=== PATIENT | male | born 1960 | race Caucasian/White ===

== ENCOUNTER 2018-01-25 10:27 | Emergency (ER) | payer OTHER, SELFPAY ==
[2018-01-25] MEDS ORDERED: METHYLPREDNISOLONE SOD SUCC 40MG/ML 1ML ONE (11:15)
[2018-01-25] MEDS ORDERED: FAMOTIDINE 20MG TAB 20 MG TAB ONE (11:15)
[2018-01-25] MEDS ORDERED: DiphenhydrAMINE HCL 50 MG/ML VIAL ONE (11:15)
== END 2018-01-25 11:30 | disposition home or self-care (01) ==
LOC: EDH 10:27
DX: B88.8 Other specified infestations (principal); F31.9 Bipolar disorder, unspecified; E11.9 Type 2 diabetes mellitus without complications; I10 Essential (primary) hypertension; Z72.0 Tobacco use; Z79.899 Other long term (current) drug therapy
CPT/HCPCS: 96372 ×2; 99284; J1200; J2920

== ENCOUNTER 2018-07-26 06:25 | Inpatient (IN) | payer OTHER ==
[~2018-07-26] VITALS: Ht 177.8 cm; Wt 62.4 kg
[2018-07-26 07:01] LABS: BASOPHILS % (AUTO) 0.2 % (0.0-5.0); HEMATOCRIT 30.7 % (42-54); LYMPHOCYTES % (AUTO) 6.2 % (21.0-51.0); MEAN CORPUSCULAR HEMOGLOBIN 33.9 pg (27.0-33.0); MEAN CORPUSCULAR HGB CONC 35.3 g/dL (32.0-36.0); MEAN CORPUSCULAR VOLUME 95.9 fL (79-99); MONOCYTES % (AUTO) 4.9 % (3.0-13.0); NEUTROPHILS % (AUTO) 88.7 % (40.0-77.0); PLATELET COUNT (AUTO) 317 K/uL (130-400); RED CELL DISTRIBUTION WIDTH 13.6 % (11.0-15.5); WHITE BLOOD COUNT (AUTO) 9.9 K/uL (4.8-10.8)
[2018-07-26] MEDS ORDERED: LIDOCAINE HCL 2% VISCOUS 15 ML UDCUP ONE (07:15)
[2018-07-26] MEDS ORDERED: ONDANSETRON HCL 4 MG/2 ML VIAL ONE (07:15)
[2018-07-26] MEDS ORDERED: SODIUM CHLORIDE 0.9% 1000ML 1,000 ML IV ONE ×2 (07:15→08:25)
[2018-07-26] MEDS ORDERED: MAG HYDROX/AL HYDROX/SIMETH ES 30 ML SUSP UDCUP ONE (07:15)
[2018-07-26 07:16] LABS: ALBUMIN 3.3 g/dL (3.5-5.0); BILIRUBIN,TOTAL 0.9 mg/dL (0.2-1.0); CREATININE 1.4 mg/dL (0.5-1.5); POTASSIUM 3.6 mmol/L (3.5-5.1); TOTAL PROTEIN, SERUM 7.2 g/dL (6.0-8.3)
[2018-07-26] MEDS ORDERED: DICYCLOMINE HCL 10 MG/ML 2ML AMP IM ONE (07:16)
[2018-07-26 09:50] VITALS: BP 153/85
[2018-07-26] MEDS ORDERED: THIAMINE HCL 100 MG TABLET PO SCH (10:15)
[2018-07-26] MEDS ORDERED: ONDANSETRON HCL 4 MG/2 ML VIAL IVP PRN (10:45)
[2018-07-26] MEDS ORDERED: LORAZEPAM 2 MG/ML 1 ML VIAL IVP SCH (10:45)
[2018-07-26] MEDS ORDERED: CLINDAMYCIN 600 MG/D5% WATER 50 ML IV ONE (11:29)
[2018-07-26 11:46] VITALS: BP 137/79
[2018-07-26] MEDS: DEXTROSE 5 % AND 0.9 % NACL 1,000 ML IV SCH ×3 (11:55→21:10)
[2018-07-26] MEDS: FAMOTIDINE/PF 20 MG/2 ML VIAL IV SCH ×2 (11:55→21:09)
[2018-07-26 12:25] LABS: APPEARANCE,URINE Clear (CLEAR); BILIRUBIN,URINE Negative (NEGATIVE); COLOR,URINE Yellow (YELLOW); GLUCOSE, URINE (UA) Negative (NEGATIVE); KETONES,URINE Negative (NEGATIVE); LEUKOCYTE ESTERASE ,URINE Negative (NEGATIVE); NITRATE,URINE Negative (NEGATIVE); OCCULT BLOOD,URINE Moderate (NEGATIVE); PROTEIN,URINE POS 2+ (NEGATIVE)
[2018-07-26 12:31] LABS: AMPHET/METH SCREEN,URINE NEGATIVE (NEGATIVE); BARBITURATE SCREEN, URINE NEGATIVE (NEGATIVE); BENZODIAZEPINES SCREEN,URINE NEGATIVE (NEGATIVE); CANNABINOID SCREEN,URINE NEGATIVE (NEGATIVE); COCAINE SCREEN,URINE NEGATIVE (NEGATIVE); OPIATE SCREEN,URINE NEGATIVE (NEGATIVE); PHENCYCLIDINE SCREEN,URINE NEGATIVE (NEGATIVE)
[2018-07-26 12:34] LABS: BACTERIA,URINE None Seen /HPF (None Seen); SQUAMOUS EPITHELIAL CELL,UR Rare /HPF (0-2); WBC,URINE None Seen /HPF (0-1)
[2018-07-26] MEDS: NICOTINE 21 MG/ 24 HR PATCH TD SCH (12:38)
[2018-07-26] MEDS: CHLORDIAZEPOXIDE HCL 5 MG CAPSULE PO SCH ×3 (12:38→21:09)
[2018-07-26] MEDS: CLINDAMYCIN 600 MG/D5% WATER 50 ML IV SCH ×2 (12:39→21:09)
[2018-07-26] MEDS: IPRATROPIUM/ALBUTEROL SULFATE 3 ML SOLUTION IH SCH ×3 (12:57→23:46)
[2018-07-26] MEDS ORDERED: VENL150C2 PO (13:00)
[2018-07-26 16:00] VITALS: BP 123/74
[2018-07-26] MEDS ORDERED: LISI1TAB13 PO (18:45)
[2018-07-26 19:34] VITALS: BP 122/74
[2018-07-26] MEDS: LORAZEPAM 2 MG/ML 1 ML VIAL IVP PRN (23:09)
[2018-07-26 23:34] VITALS: BP 122/70
[2018-07-27] MEDS: LORAZEPAM 2 MG/ML 1 ML VIAL IVP PRN ×3 (03:33→21:33)
[2018-07-27 03:42] VITALS: BP 135/77
[2018-07-27 03:52] LABS: HEMATOCRIT 24.6 % (42-54); MEAN CORPUSCULAR HEMOGLOBIN 34.6 pg (27.0-33.0); MEAN CORPUSCULAR HGB CONC 35.7 g/dL (32.0-36.0); MEAN CORPUSCULAR VOLUME 96.9 fL (79-99); PLATELET COUNT (AUTO) 253 K/uL (130-400); RED BLOOD CELL COUNT(AUTO) 2.54 MIL/uL (4.50-6.20); RED CELL DISTRIBUTION WIDTH 13.3 % (11.0-15.5); WHITE BLOOD COUNT (AUTO) 5.3 K/uL (4.8-10.8)
[2018-07-27 03:57] LABS: BAND NEUTROPHILS % (MANUAL) 2 % (0-2); LYMPHOCYTES % (MANUAL) 10 % (22-44); MONOCYTES % (MANUAL) 7 % (2-9); SEGMENTED NEUTROPHILS % 81 % (40-70)
[2018-07-27 03:58] LABS: MAN.DIFF COMMENT-IMPRESSION MANUAL DIFFERENTIAL
[2018-07-27 04:30] LABS: ALBUMIN 2.5 g/dL (3.5-5.0); BILIRUBIN,DIRECT 0.1 mg/dL (0.0-0.3); BILIRUBIN,TOTAL 0.5 mg/dL (0.2-1.0); CREATININE 1.4 mg/dL (0.5-1.5); MAGNESIUM 1.5 mg/dL (1.80-2.40); PHOSPHORUS 2.3 mg/dL (2.5-4.9); POTASSIUM 3.2 mmol/L (3.5-5.1); TOTAL PROTEIN, SERUM 5.6 g/dL (6.0-8.3)
[2018-07-27] MEDS: CLINDAMYCIN 600 MG/D5% WATER 50 ML IV SCH ×3 (05:36→20:07)
[2018-07-27] MEDS: DEXTROSE 5 % AND 0.9 % NACL 1,000 ML IV SCH (05:36)
[2018-07-27] MEDS: IPRATROPIUM/ALBUTEROL SULFATE 3 ML SOLUTION IH SCH ×4 (05:58→23:49)
[2018-07-27 07:33] VITALS: BP 129/72
[2018-07-27] MEDS ORDERED: POTASSIUM CHLORIDE 20 MEQ ERTAB PO SCH (08:45)
[2018-07-27 09:02] LABS: % IRON SATURATION 32.3 % (30-44)
[2018-07-27] MEDS: NICOTINE 21 MG/ 24 HR PATCH TD SCH (09:06)
[2018-07-27] MEDS: FAMOTIDINE/PF 20 MG/2 ML VIAL IV SCH ×2 (09:06→20:05)
[2018-07-27] MEDS: THIAMINE HCL 100 MG TABLET PO SCH (09:07)
[2018-07-27] MEDS: CHLORDIAZEPOXIDE HCL 5 MG CAPSULE PO SCH ×3 (09:07→20:06)
[2018-07-27 11:04] VITALS: BP 115/71
[2018-07-27] MEDS ORDERED: VENLAFAXINE HCL XR 150 MG CAP PO SCH (11:15)
[2018-07-27] MEDS ORDERED: MAGNESIUM SULFATE 1 GM in SODIUM CHLORIDE 0.9% 50 ML IV SCH (11:30)
[2018-07-27] MEDS: METOPROLOL TARTRATE 25 MG TAB PO SCH ×2 (12:03→20:06)
[2018-07-27] MEDS: BUPROPION HCL 150 MG TABLET.SA PO SCH (12:03)
[2018-07-27] MEDS: VENLAFAXINE HCL XR 37.5 MG CAP PO SCH (12:15)
[2018-07-27 16:12] VITALS: BP 126/83
[2018-07-27 19:33] VITALS: BP 128/80
[2018-07-27 23:47] VITALS: BP 111/78
[2018-07-28] MEDS: LORAZEPAM 2 MG/ML 1 ML VIAL IVP PRN ×2 (01:24→08:34)
[2018-07-28] MEDS ORDERED: LORAZEPAM 2 MG/ML 1 ML VIAL IM ONE (01:30)
[2018-07-28] MEDS: DEXTROSE 5 % AND 0.9 % NACL 1,000 ML IV SCH ×4 (02:15→19:53)
[2018-07-28 03:49] VITALS: BP 144/79
[2018-07-28] MEDS: CLINDAMYCIN 600 MG/D5% WATER 50 ML IV SCH ×4 (04:01→20:07)
[2018-07-28] MEDS: IPRATROPIUM/ALBUTEROL SULFATE 3 ML SOLUTION IH SCH ×4 (06:10→23:24)
[2018-07-28 07:08] LABS: HEMATOCRIT 25.6 % (42-54); MEAN CORPUSCULAR HEMOGLOBIN 34.3 pg (27.0-33.0); MEAN CORPUSCULAR HGB CONC 34.5 g/dL (32.0-36.0); MEAN CORPUSCULAR VOLUME 99.4 fL (79-99); PLATELET COUNT (AUTO) 234 K/uL (130-400); RED BLOOD CELL COUNT(AUTO) 2.57 MIL/uL (4.50-6.20); RED CELL DISTRIBUTION WIDTH 13.7 % (11.0-15.5); WHITE BLOOD COUNT (AUTO) 7.2 K/uL (4.8-10.8)
[2018-07-28 07:29] LABS: ALBUMIN 3.1 g/dL (3.5-5.0); BILIRUBIN,DIRECT 0.2 mg/dL (0.0-0.3); BILIRUBIN,TOTAL 0.5 mg/dL (0.2-1.0); CREATININE 1.3 mg/dL (0.5-1.5); MAGNESIUM 1.3 mg/dL (1.80-2.40); PHOSPHORUS 2.2 mg/dL (2.5-4.9); POTASSIUM 3.3 mmol/L (3.5-5.1); TOTAL PROTEIN, SERUM 6.5 g/dL (6.0-8.3)
[2018-07-28 07:33] VITALS: BP 130/82
[2018-07-28] MEDS: BUPROPION HCL 150 MG TABLET.SA PO SCH (08:09)
[2018-07-28] MEDS: METOPROLOL TARTRATE 25 MG TAB PO SCH ×2 (08:09→19:58)
[2018-07-28] MEDS: THIAMINE HCL 100 MG TABLET PO SCH (08:09)
[2018-07-28] MEDS: CHLORDIAZEPOXIDE HCL 5 MG CAPSULE PO SCH (08:10)
[2018-07-28] MEDS: VENLAFAXINE HCL XR 37.5 MG CAP PO SCH (08:10)
[2018-07-28] MEDS ORDERED: DIAZEPAM 5 MG/ML 2 ML SYG IM SCH (08:30)
[2018-07-28 08:35] LABS: EOSINOPHILS % (MANUAL) 1 % (1-6); LYMPHOCYTES % (MANUAL) 19 % (22-44); MAN.DIFF COMMENT-IMPRESSION MANUAL DIFFERENTIAL; MONOCYTES % (MANUAL) 4 % (2-9); PLATELET MORPHOLOGY COMMENT ADEQUATE; SEGMENTED NEUTROPHILS % 76 % (40-70)
[2018-07-28] MEDS: FAMOTIDINE/PF 20 MG/2 ML VIAL IV SCH ×2 (08:36→19:53)
[2018-07-28] MEDS ORDERED: VENLAFAXINE HCL XR 37.5 MG CAP PO SCH (09:00)
[2018-07-28] MEDS ORDERED: DIAZEPAM 5 MG TABLET PO ONE (09:00)
[2018-07-28] MEDS: NICOTINE 21 MG/ 24 HR PATCH TD SCH (09:00)
[2018-07-28] MEDS ORDERED: DIAZEPAM 5 MG TABLET PO SCH (09:15)
[2018-07-28] MEDS: MAGNESIUM OXIDE 400 MG TABLET PO SCH (09:20)
[2018-07-28] MEDS: NEUTRA-PHOS PACKET 1 EACH PO SCH ×4 (09:21→19:59)
[2018-07-28 11:00] VITALS: BP 129/77
[2018-07-28] MEDS: DIAZEPAM 5 MG TABLET PO PRN ×3 (14:07→20:13)
[2018-07-28 19:41] VITALS: BP 136/67
[2018-07-28] MEDS: MEGESTROL 400 MG/10 ML UDCUP PO SCH (19:58)
[2018-07-28] MEDS ORDERED: DIAZEPAM 5 MG TABLET PO PRN (20:00)
[2018-07-28 23:45] VITALS: BP 144/81
[2018-07-29 04:07] LABS: HEMATOCRIT 25.4 % (42-54); MEAN CORPUSCULAR HEMOGLOBIN 34.9 pg (27.0-33.0); MEAN CORPUSCULAR VOLUME 99.7 fL (79-99); PLATELET COUNT (AUTO) 225 K/uL (130-400); RED BLOOD CELL COUNT(AUTO) 2.55 MIL/uL (4.50-6.20); RED CELL DISTRIBUTION WIDTH 13.6 % (11.0-15.5); WHITE BLOOD COUNT (AUTO) 5.2 K/uL (4.8-10.8)
[2018-07-29 04:44] LABS: CREATININE 1.1 mg/dL (0.5-1.5); MAGNESIUM 1.4 mg/dL (1.80-2.40); PHOSPHORUS 3.9 mg/dL (2.5-4.9); POTASSIUM 3.8 mmol/L (3.5-5.1)
[2018-07-29 04:46] LABS: % IRON SATURATION 20.5 % (30-44)
[2018-07-29] MEDS: IPRATROPIUM/ALBUTEROL SULFATE 3 ML SOLUTION IH SCH ×4 (06:06→23:14)
[2018-07-29 07:30] VITALS: BP 123/64
[2018-07-29] MEDS: FAMOTIDINE/PF 20 MG/2 ML VIAL IV SCH ×2 (09:00→20:41)
[2018-07-29] MEDS: VENLAFAXINE HCL XR 37.5 MG CAP PO SCH (09:13)
[2018-07-29] MEDS: NICOTINE 21 MG/ 24 HR PATCH TD SCH (09:13)
[2018-07-29] MEDS: MEGESTROL 400 MG/10 ML UDCUP PO SCH ×2 (09:13→20:41)
[2018-07-29] MEDS: NEUTRA-PHOS PACKET 1 EACH PO SCH ×4 (09:13→20:41)
[2018-07-29] MEDS: THIAMINE HCL 100 MG TABLET PO SCH (09:14)
[2018-07-29] MEDS: METOPROLOL TARTRATE 25 MG TAB PO SCH ×2 (09:14→20:41)
[2018-07-29] MEDS: BUPROPION HCL 150 MG TABLET.SA PO SCH (09:14)
[2018-07-29] MEDS: MAGNESIUM OXIDE 400 MG TABLET PO SCH (09:15)
[2018-07-29] MEDS: DEXTROSE 5 % AND 0.9 % NACL 1,000 ML IV SCH ×2 (09:59→18:15)
[2018-07-29 11:02] VITALS: BP 128/76
[2018-07-29] MEDS: CLINDAMYCIN 600 MG/D5% WATER 50 ML IV SCH ×2 (13:33→22:04)
[2018-07-29] MEDS ORDERED: PHARMACY COMMUNICATION MISC SCH (15:00)
[2018-07-29] MEDS ORDERED: MAGNESIUM 4GM PREMIX 100ML 100 ML IV ONE (15:30)
[2018-07-29] MEDS ORDERED: POTASSIUM CHLORIDE 20 MEQ ERTAB PO SCH (15:30)
[2018-07-29 16:01] VITALS: BP 135/81
[2018-07-29] MEDS: DIAZEPAM 5 MG TABLET PO PRN (17:28)
[2018-07-29] MEDS: IRON SUCROSE COMPLEX 100 MG in SODIUM CHLORIDE 0.9% 50 ML IV SCH (17:57)
[2018-07-29 19:45] VITALS: BP 151/85
[2018-07-29] MEDS: FERROUS SULFATE 325 MG TABLET.DR PO SCH (20:41)
[2018-07-29 23:41] VITALS: BP 138/85
[2018-07-30 03:41] LABS: HEMATOCRIT 24.8 % (42-54); MEAN CORPUSCULAR HEMOGLOBIN 34.5 pg (27.0-33.0); MEAN CORPUSCULAR HGB CONC 34.4 g/dL (32.0-36.0); MEAN CORPUSCULAR VOLUME 100.1 fL (79-99); NUCLEATED RED BLOOD CELLS 0.1 % (0.0-0.19); PLATELET COUNT (AUTO) 224 K/uL (130-400); RED BLOOD CELL COUNT(AUTO) 2.48 MIL/uL (4.50-6.20); RED CELL DISTRIBUTION WIDTH 13.7 % (11.0-15.5); WHITE BLOOD COUNT (AUTO) 5.8 K/uL (4.8-10.8)
[2018-07-30 03:53] VITALS: BP 141/89
[2018-07-30 03:54] LABS: INR 0.86 (0.85-1.15); PARTIAL THROMBOPLASTIN TIME 24.5 SEC (26.3-35.5); PROTHROMBIN TIME 9.1 SEC (9.6-11.6)
[2018-07-30 04:02] LABS: CARBON DIOXIDE 32 mmol/L (21-32); CHLORIDE 105 mmol/L (101-111); CREATININE 1.2 mg/dL (0.5-1.5); GLOMERULAR FILTR. RATE CALC 66 mL/min (>60); GLUCOSE,RANDOM 85 mg/dL (70-105); PHOSPHORUS 3.5 mg/dL (2.5-4.9); POTASSIUM 4.3 mmol/L (3.5-5.1); SODIUM SERUM 140 mmol/L (136-145); UREA NITROGEN, BLOOD 14 mg/dL (7-18)
[2018-07-30 04:12] LABS: AMMONIA < 10 umol/L (11-32)
[2018-07-30] MEDS: CLINDAMYCIN 600 MG/D5% WATER 50 ML IV SCH (05:44)
[2018-07-30] MEDS: IPRATROPIUM/ALBUTEROL SULFATE 3 ML SOLUTION IH SCH (06:15)
[2018-07-30 07:28] VITALS: BP 163/82
[2018-07-30] MEDS: MAGNESIUM OXIDE 400 MG TABLET PO SCH (08:56)
[2018-07-30] MEDS: BUPROPION HCL 150 MG TABLET.SA PO SCH (08:56)
[2018-07-30] MEDS: VENLAFAXINE HCL XR 37.5 MG CAP PO SCH (08:56)
[2018-07-30] MEDS: METOPROLOL TARTRATE 25 MG TAB PO SCH (08:56)
[2018-07-30] MEDS: THIAMINE HCL 100 MG TABLET PO SCH (08:56)
[2018-07-30] MEDS: FERROUS SULFATE 325 MG TABLET.DR PO SCH (08:56)
[2018-07-30] MEDS: NICOTINE 21 MG/ 24 HR PATCH TD SCH (08:57)
[2018-07-30] MEDS: IRON SUCROSE COMPLEX 100 MG in SODIUM CHLORIDE 0.9% 50 ML IV SCH (08:57)
[2018-07-30] MEDS: FAMOTIDINE/PF 20 MG/2 ML VIAL IV SCH (08:57)
[2018-07-30] MEDS: MEGESTROL 400 MG/10 ML UDCUP PO SCH (08:57)
[2018-07-30] MEDS ORDERED: NICO-705 TD (10:18)
[2018-07-30] MEDS ORDERED: METO25 PO (10:18)
[2018-07-30] MEDS ORDERED: FERR324T4 PO (10:18)
[2018-07-30] MEDS ORDERED: THIAM100TB PO (10:18)
[2018-07-30] MEDS ORDERED: MAGOX PO (10:18)
[2018-07-30] MEDS ORDERED: DIAZ5TAB4 PO (10:18)
[2018-07-30] MEDS ORDERED: BUPR150T3 PO (10:18)
[2018-07-30 11:38] VITALS: BP 162/73
== END 2018-07-30 15:10 | disposition home or self-care (01) | DRG 640 ==
LOC: EDH 06:25 → EDHIP 06:26 → 2AH 09:41
PROVIDERS: ADMIT Internal Medicine; ATTEND Internal Medicine
DX: E87.1 Hypo-osmolality and hyponatremia (principal); G93.41 Metabolic encephalopathy; F10.231 Alcohol dependence with withdrawal delirium; R44.3 Hallucinations, unspecified; D63.8 Anemia in other chronic diseases classified elsewhere; E83.39 Other disorders of phosphorus metabolism; E83.42 Hypomagnesemia; E87.6 Hypokalemia; F31.9 Bipolar disorder, unspecified; F17.210 Nicotine dependence, cigarettes, uncomplicated; N18.9 Chronic kidney disease, unspecified; I12.9 Hypertensive chronic kidney disease with stage 1 through stage 4 chronic kidney disease, or unspecified chronic kidney disease; Y90.0 Blood alcohol level of less than 20 mg/100 ml; Z82.5 Family history of asthma and other chronic lower respiratory diseases; Z91.5 Personal history of self-harm
CPT/HCPCS: 36415; 76700; 80048; 80053; 80076; 80305; 81001; 82140; 82150; 82533; 83540; 83550; 83690; 83735; 83935; 84100; 84300; 85025; 85027; 85610; 85730; 93005; 94640; 94664; G0480; J0500; J1756; J2060; J2405; J3360; J3475; J3490; J7030; J7042

== ENCOUNTER → 2019-08-02 | Outpatient (CLI) | payer OTHER ==
[~2019-08-02] MED LIST: BUPR150T3 PO; DIAZ5TAB4 PO; FERR324T4 PO; MAGOX PO; METO25 PO; NICO-705 TD; THIAM100TB PO; VENL150C2 PO
== END | disposition home or self-care (01) ==
LOC: OIH 13:12
PROVIDERS: ATTEND Internal Medicine Cardiovascular Disease
DX: Z13.6 Encounter for screening for cardiovascular disorders (principal)
CPT/HCPCS: 75571

== ENCOUNTER → 2019-09-04 | Outpatient (CLI) | payer MEDICARE | END | disposition home or self-care (01) | LOC: SHCH 13:52 | PROVIDERS: ATTEND Internal Medicine Cardiovascular Disease | DX: I10 Essential (primary) hypertension (principal); I51.7 Cardiomegaly | CPT/HCPCS: 93306 ==

== ENCOUNTER → 2019-10-14 | Outpatient (CLI) | payer MEDICARE ==
[~2019-10-14] MED LIST changes: +REGADENOSON 0.4 MG/5 ML PF SYG IVP SCH
== END | disposition home or self-care (01) ==
LOC: SHCH 08:50
PROVIDERS: ATTEND Internal Medicine Cardiovascular Disease
DX: I25.119 Atherosclerotic heart disease of native coronary artery with unspecified angina pectoris (principal); R94.31 Abnormal electrocardiogram [ECG] [EKG]
CPT/HCPCS: 78452; 93017; 96374; A9500 ×2; J2785

== ENCOUNTER → 2020-09-01 | Outpatient (CLI) | payer MEDICARE ==
[~2020-09-01] MED LIST changes: -NICO-705 TD; +NICO-777 TD; -REGADENOSON 0.4 MG/5 ML PF SYG IVP SCH
== END | disposition home or self-care (01) ==
LOC: SHCH 10:22
PROVIDERS: ATTEND Internal Medicine Cardiovascular Disease
DX: I87.2 Venous insufficiency (chronic) (peripheral) (principal); R60.9 Edema, unspecified
CPT/HCPCS: 93970

== ENCOUNTER → 2021-03-16 | Outpatient (CLI) | payer MEDICARE ==
[~2021-03-16] MED LIST changes: +MAGN400T7 PO; -MAGOX PO
== END | disposition home or self-care (01) ==
LOC: SHCH 09:38
PROVIDERS: ATTEND Internal Medicine Cardiovascular Disease
DX: I87.2 Venous insufficiency (chronic) (peripheral) (principal)
CPT/HCPCS: 93925